=== PATIENT | male | born 1950 | race Caucasian/White ===

== ENCOUNTER → 2017-11-13 | Outpatient (CLI) | payer MEDICARE, OTHER | LOC: COL.RAD 12:30 | DX: M47.27 Other spondylosis with radiculopathy, lumbosacral region (principal); M48.061 Spinal stenosis, lumbar region without neurogenic claudication; M99.73 Connective tissue and disc stenosis of intervertebral foramina of lumbar region; M51.17 Intervertebral disc disorders with radiculopathy, lumbosacral region ==

== ENCOUNTER 2018-04-23 10:56 | Day surgery (SDC) | payer MEDICARE, OTHER ==
[~2018-04-23] VITALS: Ht 177.8 cm; Wt 99.9 kg
[2018-04-23 11:13] VITALS: BP 156/69; BP 185/79; PULSE 50; TEMP 98.3
[2018-04-23] MEDS ORDERED: EPA FISH OIL1 SGL PO (11:48)
[2018-04-23] MEDS ORDERED: SYNTHROID0.1 MG/TAB PO (11:48)
[2018-04-23] MEDS ORDERED: PRINIVIL5 MG PO (11:48)
[2018-04-23] MEDS ORDERED: VITAMIND3 5000 PO (11:49)
[2018-04-23] MEDS ORDERED: LIPITOR 10MG10 MG PO (11:49)
[2018-04-23] MEDS ORDERED: SAW PALMETTO 101 SGL PO (11:50)
[2018-04-23] MEDS ORDERED: MULTIPLE VITAMI1 TA5 PO (11:51)
[2018-04-23] MEDS ORDERED: ASPIRIN 81M81 MG/TA2 PO (11:52)
[2018-04-23] MEDS ORDERED: ADVIL200 MG PO (11:53)
[2018-04-23] MEDS ORDERED: ALEVE 220MG220 MG PO (11:53)
[2018-04-23] MEDS ORDERED: MAGNESIUM250 M1 PO (11:54)
[2018-04-23] MEDS ORDERED: CITRACAL + D CA1 TAB PO (11:54)
[2018-04-23 16:10] VITALS: BP 153/81; PULSE 56; TEMP 97.6
[2018-04-23 16:30] VITALS: BP 160/83; PULSE 60
[2018-04-23 17:39] VITALS: BP 146/88; PULSE 61; TEMP 97.6
== END 2018-04-23 17:15 | disposition home or self-care (01) ==
LOC: SDCO 10:56
DX: K40.90 Unilateral inguinal hernia, without obstruction or gangrene, not specified as recurrent (principal); Z79.82 Long term (current) use of aspirin; Z79.899 Other long term (current) drug therapy; I10 Essential (primary) hypertension; E78.00 Pure hypercholesterolemia, unspecified; G89.29 Other chronic pain; E03.9 Hypothyroidism, unspecified; M79.602 Pain in left arm; M19.90 Unspecified osteoarthritis, unspecified site; M51.06 Intervertebral disc disorders with myelopathy, lumbar region
CPT/HCPCS: C1781; J0690; J1100; J1885; J2405; J2704; J3010; J7120

== ENCOUNTER 2021-04-17 08:18 | Emergency (ER) | payer MEDICARE, OTHER ==
[~2021-04-17] VITALS: Ht 177.8 cm; Wt 104.5 kg
[~2021-04-17 08:18] MED LIST: ADVIL200 MG PO; ALEVE 220MG220 MG PO; ASPIRIN 81M81 MG/TA2 PO; CITRACAL + D CA1 TAB PO; EPA FISH OIL1 SGL PO; LIPITOR 10MG10 MG PO; MAGNESIUM250 M1 PO; MULTIPLE VITAMI1 TA5 PO; PRINIVIL5 MG PO; SAW PALMETTO 101 SGL PO; SYNTHROID0.1 MG/TAB PO; VITAMIND3 5000 PO
[2021-04-17 08:26] VITALS: TEMP 98.1
[2021-04-17 09:09] LABS: BASO % 0.3 % (0.0-2.0); EOS # 0.1 K/mm3 (0.0-0.7); EOS % 1.8 % (0-4.0); GRAN # 3.8 K/mm3 (1.4-6.5); GRAN % 62.7 % (42.2-75.2); HEMATOCRIT 44.1 % (42.0-52.0); HEMOGLOBIN 13.8 g/dl (13.5-18.0); LYMPH # 1.3 K/mm3 (1.2-3.4); LYMPH % 21.7 % (20.0-51.0); MEAN CELL VOLUME 93 fl (80.0-100.0); MEAN CORPUSCULAR HEMOGLOBIN 29 pg (27.0-31.0); MEAN CORPUSCULAR HGB CONC 31 g/dl (33.0-37.0); MEAN PLATELET VOLUME 10.6 fl (7.4-10.4); MONO # 0.8 K/mm3 (0.1-0.6); MONO % 13.2 % (1.7-9.3); PLATELET COUNT 255 K/mm3 (130-400); RED BLOOD COUNT 4.72 M/mm3 (4.20-5.60); REDCELL DISTRIBUTION WIDTH-CV 13.9 % (11.5-14.5)
[2021-04-17 09:19] LABS: COLLECTION METHOD CLEAN CATCH
[2021-04-17 09:23] LABS: ALBUMIN 3.9 gm/dL (3.4-4.8); BILIRUBIN,TOTAL 0.3 mg/dL (0.2-1.2); CALCIUM 9.5 mg/dL (8.4-10.2); CREATININE, serum 0.83 mg/dL (0.72-1.25); POTASSIUM 4.2 mmol/L (3.5-4.5)
[2021-04-17 09:24] LABS: PH 7 (5-8); SQUAMOUS EPITHELIAL None Seen /hpf; URINE APPEARANCE Clear; URINE BACTERIA None Seen /hpf; URINE BILIRUBIN Negative (NEGATIVE); URINE BLOOD Negative (NEGATIVE); URINE COLOR Colorless; URINE GLUCOSE Negative (NEGATIVE); URINE KETONE Negative (NEGATIVE); URINE LEUKOCYTE ESTERASE Negative (NEGATIVE); URINE NITRATE Negative (NEGATIVE); URINE PROTEIN(semi-quant) Negative (NEGATIVE); URINE RBC 0-2 /hpf; URINE UROBILINOGEN Negative (NEGATIVE)
[2021-04-17 09:43] LABS: TSH w REFLEX 2.369 uIU/mL (0.350-4.940)
[2021-04-17] MEDS ORDERED: PLAVIX 75MG TAB75 MG PO (12:26)
[2021-04-17 12:30] VITALS: BP 162/106; PULSE 94
== END 2021-04-17 12:47 | disposition home or self-care (01) ==
LOC: COL.ER 08:18
PROVIDERS: Emergency Medicine
DX: G45.9 Transient cerebral ischemic attack, unspecified (principal); I10 Essential (primary) hypertension; Z87.891 Personal history of nicotine dependence; Z20.822 Contact with and (suspected) exposure to COVID-19; Z79.899 Other long term (current) drug therapy
CPT/HCPCS: J0360; Q9967